=== PATIENT | female | born 1995 ===

== ENCOUNTER 2018-12-20 23:42 | Emergency (ER) | payer SELFPAY ==
[2018-12-21] MEDS: IBUPROFEN 800 MG TAB PO (00:13)
== END 2018-12-21 01:10 | disposition home or self-care (01) ==
LOC: E/R 23:42
DX: S00.12XA Contusion of left eyelid and periocular area, initial encounter (principal); J45.909 Unspecified asthma, uncomplicated; Y04.8XXA Assault by other bodily force, initial encounter
CPT/HCPCS: 70450; 70486; 99284-25